=== PATIENT | female | born 1990 | race African-American/Black ===

== ENCOUNTER 2023-05-17 01:42 | Emergency (ER) | payer SELFPAY ==
[~2023-05-17] VITALS: Ht 170.2 cm; Wt 58.0 kg
[2023-05-17 01:46] VITALS: BP 118/80; PULSE 60; RESP 18; O2SAT 100
[2023-05-17] MEDS ORDERED: ACETAMINOPHEN 325MG TABLET PO STA ×2 (02:19→09:04)
[2023-05-17 09:04] VITALS: TEMP 97.2
[2023-05-17] MEDS ORDERED: TOPUD PO (09:07)
== END 2023-05-17 11:29 | disposition home or self-care (01) ==
LOC: ER 02:04
DX: M79.10 Myalgia, unspecified site (principal)
CPT/HCPCS: 73110; 74176; 81025; 99284